=== PATIENT | female | born 1940 | race Caucasian/White ===

== ENCOUNTER 2017-02-02 12:36 | Emergency (ER) | payer MEDICARE ==
[~2017-02-02] VITALS: Ht 160 cm; Wt 77.0 kg
[2017-02-02 12:39] VITALS: BP 169/74; PULSE 64; RESP 20; TEMP 97.3; O2SAT 95
--- NOTE | 2017-02-02 12:47 | PD ---
Physical Exam Time Seen by Provider: 12:42 Narrative 76yo F c/o tripping over a speed bump and fell and hit R forehead about 15 minutes ago. Sisters were there and witnessed fall and LOC. After, said she felt dizzy and did have LOC. Sisters noticed "seizure like activity." Sisters deny any change in mentation, confusion, disorientation at this time. Denies vomiting, anticoagulants. Reports MORALES. Patient seen in triage. VS reviewed. Awaiting bed placement. Data Data Last Documented VS Vital Signs Date Time Temp Pulse Resp B/P Pulse Ox O2 Delivery O2 Flow Rate FiO2 02/02/17 12:39 97.3 64 20 169/74 95 Room Air [facility] Supervised Visit with [place]: Charity Olsen Feb 02, 2017 12:47
[2017-02-02] MEDS ORDERED: SERT-132 PO (13:04)
--- NOTE | 2017-02-02 13:16 | PD ---
HPI Chief Complaint: Fall Time Seen by Provider: 12:54 Travel History International Travel<30 days: No Contact w/Intl Traveler<30days: No Traveled to known affect area: No History of Present Illness HPI 76-year-old female, who presents today with complaints of right forehead pain, right ankle pain, left middle finger pain, after mechanical fall. Patient states she tripped over a speed bump and fell to the ground. There was reported brief loss of consciousness for 3-5 seconds. Sisters who are at the bedside state that she postured slightly when she passed out. The patient is awake appropriate and in no acute distress now. She is complaining of forehead pain. Left middle finger pain, right ankle pain. She has an abrasion to her right hand and middle finger. She also has an abrasion to her knee. There are no other injuries reported. [facility] Social History Tobacco Use: No Allergies-Medications (Allergen,Severity, Reaction): Coded Allergies: No Known Allergies (Unverified , 02/02/17) Reported Meds & Prescriptions Reported Meds & Active Scripts Active Reported Sertraline (Sertraline HCl) 50 Mg Tab 50 Mg PO DAILY Review of Systems Except as stated in HPI: all other systems reviewed are Neg Eyes: Positive: Blurred Vision, No: Photophobia, Foreign Body Sensation ( slight blurred vision in the right eye.) HENT: Positive: Headaches (right forehead), Lightheadedness (immediately after fall), No: Neck Pain Cardiovascular: No: Chest Pain or Discomfort, Palpitations Respiratory: No: Cough Gastrointestinal: No: Nausea, Vomiting, Abdominal Pain Genitourinary: No: Incontinence Musculoskeletal: Positive: Pain (right ankle/left middle finger.), Other ( abrasion to the right wrist, right knee.), No: Weakness Neurologic: Positive: Syncope, Headache (right frontal), Other (washable posturing of the right upper and right lower extremity during the brief 3-5 minute syncopal episode.), No: Weakness, Focal Abnormalities, Coordination Problem, Change in Mentation, Slurred Speech, Incontinence, Seizures Physical Exam Narrative GENERAL: Well-developed well-nourished female in no acute respiratory distress. SKIN: Focused skin assessment warm/dry. HEAD: Abrasion/contusion to the right fifth for had just above the right thigh. No bony deformity. Normocephalic. EYES: Pupils are equal. Extraocular motions are intact.. No scleral icterus. No injection or drainage. ENT: No nasal bleeding or discharge. Mucous membranes pink and moist. NECK: Trachea midline. Supple. No posterior spinous process tenderness or pain palpated on exam. CARDIOVASCULAR: Regular rate and rhythm. No murmur appreciated. RESPIRATORY: No accessory muscle use. Clear to auscultation. GASTROINTESTINAL: Abdomen soft, non-tender, nondistended. MUSCULOSKELETAL: Swelling and mild tenderness to the right lateral malleolus or distribution. There is full range of motion of the right ankle. Bruising to the left middle finger between the PIP joint and DIP joint. No bony deformity noted. Cap refill is less than 3 seconds. NEUROLOGICAL: Awake and alert. No obvious cranial nerve deficits. Motor grossly within normal limits. Normal speech. PSYCHIATRIC: Appropriate mood and affect; insight and judgment normal. Data Data Last Documented VS Vital Signs Date Time Temp Pulse Resp B/P Pulse Ox O2 Delivery O2 Flow Rate FiO2 02/02/17 12:39 97.3 64 20 169/[address] Brain W/O Iv Contrast(Rout) (02/02/17 12:54) Ankle, Limited (Ap&Lat) (02/02/17 12:54) Complete Blood Count With Diff (02/02/17 12:54) Basic Metabolic Panel (Bmp) (02/02/17 12:54) Finger ([id number]) (02/02/17 13:06) Tetanus/Diphtheria Tox Adult (Tetanus/Di (02/02/17 13:30) Labs Laboratory Tests Test 02/02/17 13:27 White Blood Count 9.1 TH/MM3 Red Blood Count 4.15 MIL/MM3 Hemoglobin 12.3 GM/DL Hematocrit 37.2 % Mean Corpuscular Volume 89.6 FL Mean Corpuscular Hemoglobin 29.7 PG Mean Corpuscular Hemoglobin 33.2 % Concent Red Cell Distribution Width 15.7 % Platelet Count 193 TH/MM3 Mean Platelet Volume 9.9 FL Neutrophils (%) (Auto) 65.0 % Lymphocytes (%) (Auto) 23.0 % Monocytes (%) (Auto) 8.7 % Eosinophils (%) (Auto) 2.7 % Basophils (%) (Auto) 0.6 % Neutrophils # (Auto) 5.9 TH/MM3 Lymphocytes # (Auto) 2.1 TH/MM3 Monocytes # (Auto) 0.8 TH/MM3 Eosinophils # (Auto) 0.2 TH/MM3 Basophils # (Auto) 0.1 TH/MM3 CBC Comment DIFF FINAL Differential Comment Sodium Level 139 MEQ/L Potassium Level 4.0 MEQ/L Chloride Level 107 MEQ/L Carbon Dioxide Level 26.9 MEQ/L Anion Gap 5 MEQ/L Blood Urea Nitrogen 17 MG/DL Creatinine 0.98 MG/DL Estimat Glomerular Filtration 55 ML/MIN Rate Random Glucose 108 MG/DL Calcium Level 8.5 MG/DL MDM Medical Decision Making Medical Screen Exam Complete: Yes Emergency Medical Condition: Yes Differential Diagnosis Intracranial hemorrhage versus concussion versus scalp contusion versus right ankle fracture versus left middle finger fracture Narrative Course 76-year-old female who status post mechanical fall, who presents with right head pain. Patient also bruised her left middle finger, right ankle and abrasions to her right hand. The patient has a small avulsion/chip fracture to her left PIP middle finger. Patient also has no evidence of acute intracranial injury on CT scan of the brain. Right knee x-ray shows soft tissue swelling with no obvious fracture dislocation. The patient has been given tetanus immunization. She has slight blurry vision in her right I and does have a hematoma to her right forehead. Pupils were reactive. There is no hyphema. She'll be discharged told to ice all areas that are sore. She'll be given Dr. Wade's name for outpatient follow up for the hand fracture. Diagnosis Primary Impression: Closed head injury with concussion Additional Impressions: left middle finger chip fracture Contusion of right knee Abrasion of right hand Additional Instructions: Ice all areas that are sore. Follow up with hand physician, call for appointment. Return if not acting normal. Follow up with field human resources manager if blurry vision continues. Med/Other Pt SpecificInfo: Other (Head injury sheet) Disposition: 01 DISCHARGE HOME Condition: Stable Alexander Dan MD Feb 02, 2017 13:16
[2017-02-02] MEDS ORDERED: TETANUS/DIPHTHERIA TOXOID ADULT 0.5 ML VIAL IM ONE (13:30)
--- NOTE | 2017-02-02 13:32 | RADRPT ---
EXAM DATE/TIME: 02/02/2017 12:59 [facility] COMPARISON: No previous studies available for comparison. INDICATIONS : Fell this morning, pain with swelling and bruising lateral malleous. MEDICAL HISTORY : None. SURGICAL HISTORY : None. ENCOUNTER: Initial ACUITY: 1 day PAIN SCORE: 8/10 LOCATION: Right ankle. FINDINGS: Two view examination was performed of the right ankle. The bony structures are in normal alignment. No evidence of fracture, dislocation. There is some soft tissue swelling around the ankle. There is some mild degenerative changes of the medial malleolus. No radiopaque foreign bodies are seen. Bony mineralization is normal. Tiny heel spur. CONCLUSION: 1. Soft tissue swelling. 2. No acute fracture or joint dislocation. Himanshu Seo MD on February 02, 2017 at 13:29 Board Certified Radiologist. This report was verified electronically.
--- NOTE | 2017-02-02 13:33 | RADRPT ---
EXAM DATE/TIME: 02/02/2017 13:02 [facility] COMPARISON: No previous studies available for comparison. INDICATIONS : Fell this morning, pain with swelling and bruising left middle finger. MEDICAL HISTORY : None. SURGICAL HISTORY : None. ENCOUNTER: Initial ACUITY: 1 day PAIN SCORE: 7/10 LOCATION: Left middle finger. FINDINGS: Examination of the third digit of the left hand demonstrates a slightly displaced chip fracture invol ving the base of the middle phalanx, third finger. The fracture extends into the articular surface of the PIP joint. This is on the dorsal surface. There are primary degenerative changes of the PIP and DIP joints. The rest of the bony structures are grossly intact. CONCLUSION: Slightly displaced chip fracture involving the base of the third middle phalanx at the PIP joint. Himanshu Seo MD on February 02, 2017 at 13:30 Board Certified Radiologist. This report was verified electronically.
[2017-02-02 13:41] LABS: AUTOMATED NEUTROPHIL # 5.9 TH/MM3 (1.8-7.7); BASOPHIL # 0.1 TH/MM3 (0-0.2); BASOPHIL % 0.6 % (0.0-2.0); EOSINOPHIL # 0.2 TH/MM3 (0-0.4); EOSINOPHIL % 2.7 % (0.0-4.0); HEMATOCRIT 37.2 % (35.0-46.0); HEMO FLAGS DIFF FINAL; LYMPHOCYTE # 2.1 TH/MM3 (1.0-4.8); MEAN CELL VOLUME 89.6 FL (80.0-100.0); MEAN CORPUSCULAR HEMOGLOBIN 29.7 PG (27.0-34.0); MEAN CORPUSCULAR HGB CONC 33.2 % (32.0-36.0); MONO % 8.7 % (0.0-8.0); PLATELET COUNT 193 TH/MM3 (150-450); RED BLOOD COUNT 4.15 MIL/MM3 (4.00-5.30); RED CELL DISTRIBUTION WIDTH 15.7 % (11.6-17.2); WHITE BLOOD COUNT 9.1 TH/MM3 (4.0-11.0)
--- NOTE | 2017-02-02 13:51 | RADRPT ---
EXAM DATE/TIME: 02/02/2017 13:42 [facility] COMPARISON: No previous studies available for comparison. INDICATIONS : Fall, hit right side of head. RADIATION DOSE: 37.17 CTDIvol (mGy) MEDICAL HISTORY : None SURGICAL HISTORY : None. ENCOUNTER: Initial ACUITY: 3 days PAIN SCALE: 4/10 LOCATION: cranial TECHNIQUE: Multiple contiguous axial images were obtained of the head. Using automated exposure control and adj ustment of the mA and/or kV according to patient size, radiation dose was kept as low as reasonably a chievable to obtain optimal diagnostic quality images. DICOM format image data is available electro nically for review and comparison. FINDINGS: CEREBRUM: The ventricles are normal for age. No evidence of midline shift, mass lesion, hemorrhage or acute in farction. No extra-axial fluid collections are seen. POSTERIOR FOSSA: The cerebellum and brainstem are intact. The 4th ventricle is midline. The cerebellopontine angle i s unremarkable. EXTRACRANIAL: The visualized portion of the orbits is intact. SKULL: The calvaria is intact. No evidence of skull fracture. CONCLUSION: Normal examination for a patient of this age. Himanshu Seo MD on February 02, 2017 at 13:48 Board Certified Radiologist. This report was verified electronically.
[2017-02-02 13:57] LABS: BICARBONATE 26.9 MEQ/L (21.0-32.0)
== END 2017-02-02 15:23 | disposition home or self-care (01) ==
LOC: NEPE 12:36
DX: S06.0X0A Concussion without loss of consciousness, initial encounter (principal); S62.613A Displaced fracture of proximal phalanx of left middle finger, initial encounter for closed fracture; S80.01XA Contusion of right knee, initial encounter; S00.83XA Contusion of other part of head, initial encounter; S60.511A Abrasion of right hand, initial encounter; S80.211A Abrasion, right knee, initial encounter; S60.811A Abrasion of right wrist, initial encounter; W01.0XXA Fall on same level from slipping, tripping and stumbling without subsequent striking against object, initial encounter; Z23 Encounter for immunization
CPT/HCPCS: 70450; 73140; 73600; 80048; 85025; 90471; 90714